=== PATIENT | male | born 1965 | race Caucasian/White ===

== ENCOUNTER 2020-12-11 03:11 | Outpatient (CLI) | payer OTHER, SELFPAY ==
[2020-12-11 09:33] LABS: ALT 45 U/L (16-63); AST 25 U/L (15-37); Albumin 4.4 g/dL (3.4-5.0); Alkaline Phosphatase 68 U/L (46-116); Anion Gap 9.5 mmol/L (3-11); BUN 19 mg/dL (7-18); Bilirubin, Total 0.6 mg/dL (0.2-1.0); CO2 28.5 mmol/L (21.0-32.0); Calcium 9.3 mg/dL (8.5-10.1); Calculated LDL 105 mg/dL (<100); Chloride 107 mmol/L (98-107); Cholesterol 183 mg/dL (<200); Glucose 119 mg/dL (74-106); HDL Cholesterol 44 mg/dL (40-60); Potassium 4.3 mmol/L (3.5-5.1); Sodium 145 mmol/L (136-145); Total Protein 7.4 g/dL (6.4-8.2); Triglyceride 172 mg/dL (<150)
== END 2020-12-11 03:12 | disposition home or self-care (01) ==
LOC: LBO 03:11
PROVIDERS: PCP Student in an Organized Health Care Education/Training Program; Visit Provider Student in an Organized Health Care Education/Training Program
DX: I10 Essential (primary) hypertension (principal); R73.01 Impaired fasting glucose; Z13.220 Encounter for screening for lipoid disorders
CPT/HCPCS: 36415; 80053; 80061

== ENCOUNTER 2021-12-21 04:39 | Outpatient (CLI) | payer OTHER, SELFPAY ==
[2021-12-21 08:55] LABS: ALT 38 U/L (16-63); AST 22 U/L (15-37); Albumin 4.1 g/dL (3.4-5.0); Alkaline Phosphatase 75 U/L (46-116); Anion Gap 7.7 mmol/L (3-11); BUN 13 mg/dL (7-18); Bilirubin, Total 0.5 mg/dL (0.2-1.0); CO2 30.3 mmol/L (21.0-32.0); CREATININE 0.9 mg/dL (0.70-1.30); Calcium 9.3 mg/dL (8.5-10.1); Calculated LDL 81 mg/dL (<100); Chloride 105 mmol/L (98-107); Cholesterol 168 mg/dL (<200); Glucose 159 mg/dL (74-106); HDL Cholesterol 49 mg/dL (40-60); Sodium 143 mmol/L (136-145); Total Protein 6.8 g/dL (6.4-8.2); Triglyceride 192 mg/dL (<150)
== END 2021-12-21 04:40 | disposition home or self-care (01) ==
LOC: LBO 04:39
PROVIDERS: PCP Student in an Organized Health Care Education/Training Program; Visit Provider Student in an Organized Health Care Education/Training Program
DX: E11.9 Type 2 diabetes mellitus without complications (principal); Z13.220 Encounter for screening for lipoid disorders
CPT/HCPCS: 36415; 80053; 80061

== ENCOUNTER 2022-12-09 01:51 | Outpatient (CLI) | payer OTHER, SELFPAY ==
[2022-12-09 11:26] LABS: ALT 54 U/L (16-63); AST 27 U/L (15-37); Albumin 4.3 g/dL (3.4-5.0); Alkaline Phosphatase 71 U/L (46-116); Anion Gap 7.7 mmol/L (3-11); BUN 15 mg/dL (7-18); Bilirubin, Total 0.4 mg/dL (0.2-1.0); CO2 29.3 mmol/L (21.0-32.0); CREATININE 1.1 mg/dL (0.70-1.30); Calcium 9.4 mg/dL (8.5-10.1); Calculated LDL 88 mg/dL (<100); Chloride 106 mmol/L (98-107); Cholesterol 141 mg/dL (<200); Glucose 122 mg/dL (74-106); HDL Cholesterol 39 mg/dL (40-60); Potassium 3.9 mmol/L (3.5-5.1); Sodium 143 mmol/L (136-145); Total Protein 7.5 g/dL (6.4-8.2); Triglyceride 73 mg/dL (<150)
== END 2022-12-09 01:52 | disposition home or self-care (01) ==
LOC: LBO 01:51
PROVIDERS: PCP Student in an Organized Health Care Education/Training Program; Referring Provider Student in an Organized Health Care Education/Training Program; Visit Provider Student in an Organized Health Care Education/Training Program
DX: I10 Essential (primary) hypertension (principal); E11.9 Type 2 diabetes mellitus without complications; Z12.5 Encounter for screening for malignant neoplasm of prostate; Z82.49 Family history of ischemic heart disease and other diseases of the circulatory system
CPT/HCPCS: 36415; 80053; 80061; 84153

== ENCOUNTER 2022-12-17 00:30 | Outpatient (CLI) | payer OTHER, SELFPAY ==
--- NOTE | 2022-12-17 08:15 | DI.RAD_ITS ---
Exam(s) XR CERVICAL SP COMP W FLEX/EXT EXAM: XR CERVICAL SP COMP W FLEX/EXT CLINICAL HISTORY: NEW RADICULOPATHY,CERVICALAGIA,LT NECK PAIN, M54.2. TECHNIQUE: 2D digital imaging was performed. COMPARISON: No exams were available for comparison FINDINGS: Seven views: There is no evidence of acute fracture. With flexion there is mild anterolisthesis 3 upon C4; less s o with flexion and on the neutral view. There is mild disc space narrowing at C4-5, C5-6, and C6-7. There are small Luschka joint osteophyte s bilaterally at C5-6 and C6-7 levels. Mild facet joint degenerative changes. No cervical ribs. No osseous lesions. There are multilevel calcifications in the supraspinous ligament at C4-5-6 levels. IMPRESSION: Degenerative findings as described above. DATA REPOSITORY: RADIATION DOSE DELIVERED:
== END 2022-12-17 00:50 ==
LOC: DI 00:31
PROVIDERS: PCP Student in an Organized Health Care Education/Training Program; Visit Provider Student in an Organized Health Care Education/Training Program
DX: M54.2 Cervicalgia (principal)
CPT/HCPCS: 72052

== ENCOUNTER 2023-03-07 19:01 | Outpatient (REF) | payer OTHER, SELFPAY ==
[2023-03-09 11:14] LABS: Lyme Ab w Rflx to Lyme Confirm Negative (Negative)
== END 2023-03-07 19:02 | disposition home or self-care (01) ==
LOC: LBN 19:01
PROVIDERS: PCP Student in an Organized Health Care Education/Training Program; Visit Provider Nurse Practitioner Family
DX: R21 Rash and other nonspecific skin eruption (principal); W57.XXXA Bitten or stung by nonvenomous insect and other nonvenomous arthropods, initial encounter
CPT/HCPCS: 86618

== ENCOUNTER 2024-05-24 16:39 | Outpatient (REF) | payer OTHER, SELFPAY ==
--- NOTE | 2024-05-24 16:05 | SKI_PTH ---
PATIENT: Ton Munoz II LOC: [facility] U#:[id number] AGE/SX: 59/M ROOM: RE05/24/[address]: Pete Cedillo DO : 1965 BED: DIS: 05/24/2024 SPEC #: [id number] RECD: 05/25/24 11:49 STATUS: MICAELA REIsma #: [id number] LISA: 05/24/24 16:[address]: Pete Cedillo DEPT: Surgical Specimen RECD BY: Pina Koenig ENTERED: 05/25/24 11:50 SP TYPE: SHAQUILLE PALMA DR: Magdalene Ferrari DO Tissues: 1 - SKIN BIOPSY(SHAVE/PUNCH) Procedures: SKIN LEVEL 4 Comments: [id number]
== END 2024-05-24 16:40 | disposition home or self-care (01) ==
LOC: LBN 16:39
PROVIDERS: PCP Student in an Organized Health Care Education/Training Program; Visit Provider Emergency Medicine
DX: C44.41 Basal cell carcinoma of skin of scalp and neck (principal)
CPT/HCPCS: 88305

== ENCOUNTER 2024-12-21 00:42 | Outpatient (CLI) | payer OTHER, SELFPAY ==
[2024-12-21 08:24] LABS: Anion Gap 9.1 mmol/L (3-11); BUN 13 mg/dL (7-18); CO2 28.9 mmol/L (21.0-32.0); CREATININE 0.8 mg/dL (0.70-1.30); Calcium 9.5 mg/dL (8.5-10.1); Calculated LDL 86 mg/dL (<100); Chloride 104 mmol/L (98-107); Cholesterol 174 mg/dL (<200); Estimated GFR 101.95 (mL/min/1.73m2); Glucose 130 mg/dL (74-106); HDL Cholesterol 49 mg/dL (>or=40); Potassium 3.8 mmol/L (3.5-5.1); Sodium 142 mmol/L (136-145); Triglyceride 198 mg/dL (<150)
== END 2024-12-21 00:43 | disposition home or self-care (01) ==
LOC: LBO 00:42
PROVIDERS: Emergency Medicine; PCP Nurse Practitioner Family; Visit Provider Nurse Practitioner Family
DX: I10 Essential (primary) hypertension (principal); E11.9 Type 2 diabetes mellitus without complications; Z82.49 Family history of ischemic heart disease and other diseases of the circulatory system
CPT/HCPCS: 36415; 80048; 80061